=== PATIENT | female | born 1975 | race Hispanic/Latino ===

== ENCOUNTER 2019-05-31 04:17 | Emergency (ER) | payer SELFPAY ==
[2019-05-31] MEDS ORDERED: Ketorolac Tromethamine 30 MG/ML VIAL ONE (04:41)
[2019-05-31 04:44] LABS: Bacteria/HPF None Seen HPF (None Seen); Bilirubin Negative (Negative); Blood, Urine 1+ (Negative); Clarity Clear (Clear); Glucose, Urine (Dipstick) Normal (Negative); Leukocyte Negative Leu/uL (Negative); Nitrite Negative (Negative); Protein, Urine (Dipstick) Negative (Neg-Trace); RBC/HPF 0-3 HPF (0-3); Squamous Epithelial None Seen HPF (0-3); Urobilinogen Normal mg/dL (Less than 2); WBC/HPF 0-3 HPF (0-3)
[2019-05-31 04:52] LABS: #Basophils 0.1 thou/uL (0.0-0.2); #Eosinphils 0.1 thou/uL (0.0-0.7); #Lymphocytes 2.3 thou/uL (1.20-3.40); #Monocytes 0.4 thou/uL (0.11-0.59); #Neutrophils 5.8 thou/uL (1.40-6.50); %Basophils 0.6 % (0.0-1.0); %Lymphocytes 26.8 % (21.0-51.0); %Monocytes 5.1 % (0.0-10.0); %Neutrophils 66.4 % (42.0-75.0); Hemoglobin 12.7 g/dL (12.0-16.0); Mean Corpuscular Hemoglobin 31.7 pg (27.0-31.0); Mean Corpuscular Volume 93.3 fL (78.0-98.0); Mean Platelet Volume 7.8 fL (7.4-10.4); Platelet Count 198 thou/uL (130-400); RBC Distribution Width 10.9 % (11.5-14.5); White Blood Cell (WBC) Count 8.7 thou/uL (4.8-10.8)
[2019-05-31 04:58] LABS: BHCG - Serum Negative (NEGATIVE); Pregs Control Background? CLEAR/WHITE (CLR/WHITE); Pregs Control Bar Appear? YES (CONTROL BAR)
[2019-05-31 05:16] LABS: ALT (SGPT) 10 U/L (8-55); AST (SGOT) 12 U/L (5-34); Albumin 4.1 g/dL (3.5-5.0); Alkaline Phosphatase 76 U/L (40-110); Anion Gap 12 mmol/L (10-20); BUN (Urea Nitrogen) 11 mg/dL (7.0-18.7); Bilirubin, Total 0.2 mg/dL (0.2-1.2); Calc. Creatinine Clearance 0 mL/min (70-130); Calcium 9.1 mg/dL (7.8-10.44); Carbon Dioxide 23 mmol/L (22-29); Chloride 106 mmol/L (98-107); Estimated GFR-MDRD 86; Globulin 2.8 g/dL (2.4-3.5); Glucose 90 mg/dL (70-105); Lipase 23 U/L (8-78); Protein, Total 6.9 g/dL (6.0-8.3); Sodium 137 mmol/L (136-145)
--- NOTE | 2019-05-31 08:20 | ULT ---
PRELIMINARY REPORT/[facility]/AFTER HOURS PROCEDURE LIMITED ABDOMEN ULTRASOUND: HISTORY: RIGHT upper quadrant pain. TECHNIQUE: Mcconnell-scale and color flow evaluation was performed of the RIGHT upper quadrant with image documentati on. COMPARISONS: None. TECHNICAL QUALITY: Satisfactory. FINDINGS: Liver: Normal echogenicity with no masses or intrahepatic biliary ductal dilatation . Hepatopedal fl ow in the portal vein. Gallbladder: No evidence of gallstones or sludge with normal gallbladder wall at 3 mm . Negative son ographic Ignacio sign. Common bile duct: Normal size at 3 mm. Pancreas: Normal echogenicity with no masses. RIGHT kidney: Normal echogenicity with no masses, cysts, calculus or hydronephrosis. RIGHT kidney me asures 9.2 cm in length. Ascites: None. Other: None. IMPRESSION: No significant abnormality identified. ELECTRONICALLY SIGNED BY: George Ruiz MD May 31, 2019 5:52:23 AM CDT This report is intended for review by the ordering physician only, in accordance of law. If you recei ve this report in error, please call [facility] at [phone]. FINAL REPORT EMERGENT AFTER HOURS RIGHT UPPER QUADRANT ULTRASOUND: 05/31/2019 5:39 a.m. FINDINGS: No evidence of gallstones or ultrasound evidence for acute cholecystitis. The common bile duct is not dilated. The visualized pancreas and right kidney are unremarkable. IMPRESSION: Unremarkable right upper quadrant ultrasound. This report is in agreement with the preliminary report. CODE QA
== END 2019-05-31 06:00 | disposition home or self-care (01) ==
LOC: ERS 04:17
DX: R10.11 Right upper quadrant pain (principal)
CPT/HCPCS: 36415; 76705; 80053; 81003; 81015; 83690; 84703; 85025; 96372; J1885

== ENCOUNTER 2019-07-16 21:10 | Emergency (ER) | payer SELFPAY ==
[2019-07-16 21:57] LABS: #Eosinphils 0.1 thou/uL (0.0-0.7); #Monocytes 0.5 thou/uL (0.11-0.59); #Neutrophils 4.8 thou/uL (1.40-6.50); %Basophils 0.2 % (0.0-1.0); %Eosinophils 0.9 % (0.0-10.0); %Lymphocytes 27.2 % (21.0-51.0); %Monocytes 6.2 % (0.0-10.0); %Neutrophils 65.4 % (42.0-75.0); Hemoglobin 12.8 g/dL (12.0-16.0); Mean Corpuscular HGB CONC 33.6 g/dL (32.0-36.0); Mean Corpuscular Hemoglobin 30.8 pg (27.0-31.0); Mean Corpuscular Volume 91.8 fL (78.0-98.0); Mean Platelet Volume 7.6 fL (7.4-10.4); Platelet Count 233 thou/uL (130-400); RBC Distribution Width 11.3 % (11.5-14.5); Red Blood Cell (RBC) Count 4.15 mill/uL (4.20-5.40); White Blood Cell (WBC) Count 7.3 thou/uL (4.8-10.8)
[2019-07-16 22:18] LABS: ALT (SGPT) 33 U/L (8-55); AST (SGOT) 25 U/L (5-34); Albumin 4.2 g/dL (3.5-5.0); Alkaline Phosphatase 88 U/L (40-110); Anion Gap 11 mmol/L (10-20); BUN (Urea Nitrogen) 11 mg/dL (7.0-18.7); Bilirubin, Total 0.2 mg/dL (0.2-1.2); Calc. Creatinine Clearance 0 mL/min (70-130); Calcium 9.1 mg/dL (7.8-10.44); Carbon Dioxide 28 mmol/L (22-29); Chloride 103 mmol/L (98-107); Estimated GFR-MDRD 71; Globulin 3.2 g/dL (2.4-3.5); Glucose 99 mg/dL (70-105); Lipase 32 U/L (8-78); Potassium 4.1 mmol/L (3.5-5.1); Protein, Total 7.4 g/dL (6.0-8.3); Sodium 138 mmol/L (136-145)
[2019-07-16] MEDS ORDERED: Morphine 4 MG/ML VIAL ONE (22:26)
[2019-07-16] MEDS ORDERED: Ondansetron PF 4 MG/2 ML Vial ONE (22:26)
[2019-07-16 22:31] LABS: BHCG - Serum Negative (NEGATIVE); Pregs Control Background? CLEAR/WHITE (CLR/WHITE); Pregs Control Bar Appear? YES (CONTROL BAR)
[2019-07-16 22:41] LABS: Bilirubin Negative (Negative); Blood, Urine 1+ (Negative); Clarity Clear (Clear); Glucose, Urine (Dipstick) Normal (Negative); Leukocyte 25 Leu/uL (Negative); Nitrite Negative (Negative); Protein, Urine (Dipstick) Negative (Neg-Trace); RBC/HPF 0-3 HPF (0-3); Squamous Epithelial 0-3 HPF (0-3); Urobilinogen Normal mg/dL (Less than 2); WBC/HPF 0-3 HPF (0-3)
[2019-07-16 22:43] LABS: Bacteria/HPF 1+ HPF (None Seen)
--- NOTE | 2019-07-17 07:44 | ULT ---
ULTRASOUND GALLBLADDER RIGHT UPPER QUADRANT: Date: 07/16/2019 HISTORY: Right upper quadrant pain. COMPARISON: Ultrasound dated 05/31/2019. FINDINGS: Real-time Mcconnell scale and color evaluation of the right upper quadrant of the abdomen performed. Visualized portions of the aorta, IVC, and pancreas are unremarkable. Mild increased hepatic echotext ure. No hepatic mass. Gallbladder is normal. No cholelithiasis. No cholecystitis. Portal vein has patent antegrade flow. Common bile duct is normal at 3 mm. Right kidney measures 9.3 x 4.4 x 3.8 cm without mass, hydronephrosis, or abnormal calcifications. IMPRESSION: 1. No cholelithiasis or cholecystitis. 2. Mild diffuse hepatic steatosis. POS: HOME
== END 2019-07-17 00:18 | disposition home or self-care (01) ==
LOC: ERS 21:10
DX: R10.11 Right upper quadrant pain (principal); R11.2 Nausea with vomiting, unspecified
CPT/HCPCS: 76705; 80053; 81003; 81015; 83690; 84703; 85025; 96374; 96375; J2270; J2405

== ENCOUNTER 2020-01-05 00:30 | Emergency (ER) | payer SELFPAY ==
[2020-01-05] MEDS ORDERED: Ibuprofen 200 MG TAB ONE (01:05)
[2020-01-05] MEDS ORDERED: Ibuprofen 800 MG TAB ONE (01:06)
[2020-01-05 01:11] LABS: Bilirubin Negative (Negative); Blood, Urine 3+ (Negative); Clarity Turbid (Clear); Glucose, Urine (Dipstick) Normal (Negative); Ketone, Urine Negative (Negative); Leukocyte 500 Leu/uL (Negative); Nitrite Negative (Negative); Protein, Urine (Dipstick) 30 mg/dL (Neg-Trace); Specific Gravity, Urine 1.009 (1.002-1.036); Squamous Epithelial None Seen HPF (0-3); Urobilinogen Normal mg/dL (Less than 2); WBC/HPF Greater than 50 HPF (0-3)
[2020-01-05 01:15] LABS: Bacteria/HPF 1+ HPF (None Seen); Pregnancy Test - Urine (BHCG) Negative (Negative); Pregu Control Background? CLEAR/WHITE (CLR/WHITE); Pregu Control Bar Appear? YES (CONTROL BAR); Specific Gravity 1.009 (1.002-1.036)
== END 2020-01-05 01:42 | disposition home or self-care (01) ==
LOC: ERS 00:30
DX: N39.0 Urinary tract infection, site not specified (principal)
CPT/HCPCS: 81003; 81015; 81025; 99284